=== PATIENT | female | born 1955 | race Caucasian/White ===

== ENCOUNTER 2019-02-13 14:50 | Emergency (ER) | payer OTHER ==
[2019-02-13 14:57] VITALS: BMI 30.9
[2019-02-13] MEDS ORDERED: SODIUM CHLORIDE 0.9% 1000 ML INFUS.BAG IV ONE (15:11)
[2019-02-13] MEDS ORDERED: TRANEXAMIC ACID 1000 MG/10 ML VIAL IVPUSH ONE (15:19)
[2019-02-13] MEDS ORDERED: TRANEXAMIC ACID 1000 MG/10 ML VIAL ONE (15:23)
[2019-02-13 15:29] LABS: MCH 31.5 pg (25.7-33.7); MCHC 33.2 g/dl (32.0-36.0)
[2019-02-13] MEDS ORDERED: ONDANSETRON 4 MG/2 ML VIAL IVPUSH ONE (15:30)
[2019-02-13] MEDS ORDERED: ONDANSETRON 4 MG/2 ML VIAL ONE (15:39)
[2019-02-13 15:44] LABS: ALBUMIN 3.5 g/dl (3.4-5.0); BILIRUBIN,TOTAL 0.5 mg/dL (0.2-1); BLOOD UREA NITROGEN 17.1 mg/dL (7-18); CALCIUM 9.2 mg/dL (8.5-10.1); CREATININE 1.3 mg/dL (0.55-1.3); TOT PROT 7.9 g/dl (6.4-8.2)
[2019-02-13 15:48] LABS: BASO % 0.5 % (0-2.0); EOS % 0.3 % (0-4.5); HEMATOCRIT 45.7 % (32.4-45.2); HEMOGLOBIN 15.2 GM/dL (10.7-15.3); LYMPH % 29.1 % (8-40); MEAN PLT VOLUME 7.2 fl (7.5-11.1); MONO % 5.2 % (3.8-10.2); NEUT % 64.9 % (42.8-82.8); RBC 4.81 M/mm3 (3.60-5.2); RDW 14.5 % (11.6-15.6); WHITE BLOOD COUNT 13.5 K/mm3 (4.0-10.0)
[2019-02-13 15:55] LABS: PLATELET COUNT 457 K/MM3 (134-434)
--- NOTE | 2019-02-13 16:03 | PDOC ---
History of Present Illness - General Chief Complaint: Vaginal Bleeding Stated Complaint: VAGINAL BLEEDING Time Seen by Provider: 02/13/19 15:02 History Source: Patient Exam Limitations: No Limitations - History of Present Illness Initial Comments: 02/13/19 15:57 63M with a PMH of HTN, DM, HLD, PAD (on asa and plavix), and HIV (undetectable VL and stable CD4) who presents to the ER with complaints of vaginal bleeding. Pt states that she had a cold knife bx of her cervix on 01/29/19 at [facility]. 1 hour [employer], she had profuse bleeding and states she bled through a pad while she was changing to come to the ER. She admits to lightheadedness and nausea but denies CP, SOB, fever, chills, abdominal pain. Past History - Past Medical History Allergies/Adverse Reactions: Allergies Allergy/AdvReac Type Severity Reaction Status Date / Time No Known Allergies Allergy Verified 02/13/19 14:57 Home Medications: Ambulatory Orders Omeprazole [Prilosec] 20 tab PO HS #30 capsule. 03/14/16 Blood Sugar Diagnostic [Glucose Test Strip] 1 each MC BID #1 box 12/06/16 Gabapentin [Neurontin -] 1 - 2 cap PO HS #60 capsule 07/14/18 Ergocalciferol [Vitamin D2] 50,000 unit PO MOFR #8 capsule 10/02/18 Alendronate Sodium [Binosto] 70 mg PO WEEKLY #4 tablet.eff 01/13/19 Atorvastatin Ca [Lipitor] 1 tab PO DAILY #30 tablet 01/13/19 Bictegrav/Emtricit/Tenofov Ala [Biktarvy 50-200-25 mg Tablet] 1 each PO DAILY # 30 tablet 01/13/19 Clopidogrel Bisulfate [Plavix -] 1 tab PO DAILY #30 tablet 01/13/19 Insulin Degludec [Tresiba Flextouch U-100] 58 unit SQ HS #1 box 01/13/19 Metoprolol Succinate [Toprol XL -] 25 mg PO BID #60 tab.sr.24h 01/13/19 Wakefield-3 Fatty Acids [Wakefield-3] 1,000 mg PO BID #60 capsule 01/13/19 Pen Needle, Diabetic [Insulin Pen Needle] 1 each HS #1 box 01/13/19 Ramipril [Altace] 10 mg PO ONCE #30 capsule 01/13/19 Semaglutide [Ozempic] 1 mg SQ Q7D #1 pen.injctr 01/13/19 Bupropion HCl [Wellbutrin Xl -] 1 tab PO DAILY #30 tab.sr.24h 01/20/19 Zolpidem Tartrate [Ambien] 5 mg PO HS #15 tablet MDD 1 01/20/19 Baclofen [Lioresal -] 10 mg PO TID PRN #90 tablet 01/27/19 Diclofenac Sodium [Voltaren] 2 gm TP TID PRN #3 tube 01/27/19 Oxycodone HCl/Acetaminophen [Endocet 7.5-325 mg Tablet] 1 each PO TID PRN #90 tablet MDD 3 01/27/19 Aspirin [Aspirin EC] 81 tab PO DAILY #30 tablet. 02/01/19 Empagliflozin [Jardiance] 10 mg PO DAILY #90 tablet 02/01/19 Anemia: No Asthma: No Cancer: No Cardiac Disorders: Yes (hx mi, cabg) CVA: No COPD: Yes CHF: No Dementia: No Diabetes: Yes GI Disorders: Yes (GERD) Disorders: No HTN: Yes Hypercholesterolemia: Yes Liver Disease: No Psychiatric Problems: No Seizures: No Thyroid Disease: No - Surgical History Abdominal Surgery: No Appendectomy: No Cardiac Surgery: Yes (6 stents via cardiac cath, 1 single bypass, open heart surgery) Cholecystectomy: Yes (06/2014) Lung Surgery: No Neurologic Surgery: No Orthopedic Surgery: Yes (Rt ankle s/p trauma - 07/30/14, [facility]) - Reproductive History Is Patient Now?: No - Suicide/Smoking/Psychosocial Hx Smoking History: Unknown if ever smoked Have you smoked in the past 12 months: Yes Number of Cigarettes Smoked Daily: 4 If you are a former smoker, when did you quit?: 1.5 months ago Cigars Per Day: 0 'Breaking Loose' booklet given: 11/07/14 Hx Alcohol Use: Yes (rare- none x months) Drug/Substance Use Hx: Yes (none for fifteen years) Substance Use Type: Alcohol, Cocaine, Marijuana Hx Substance Use Treatment: No Review of Systems - Review of Systems Able to Perform ROS?: Yes Comments:: 02/13/19 15:59 GENERAL/CONSTITUTIONAL: No fever or chills. No weakness. HEAD, EYES, EARS, NOSE AND THROAT: No change in vision. No ear pain or discharge. No sore throat. CARDIOVASCULAR: No chest pain, palpitations, or lightheadedness. RESPIRATORY: No cough, wheezing, shortness of breath, or hemoptysis. GASTROINTESTINAL: No abdominal pain, nausea, vomiting, diarrhea, or constipation. GENITOURINARY: + for vaginal bleeding. No dysuria, frequency, hematuria, or change in urination. MUSCULOSKELETAL: No joint or muscle swelling or pain. No neck or back pain. SKIN: No rash or lesions. NEUROLOGIC: No headache, numbness, tingling, focal weakness, loss of consciousness, or change in strength/sensation. *Physical Exam - Vital Signs Last Vital Signs Temp Pulse Resp BP Pulse Ox 97.8 F 86 18 127/80 97 02/13/19 15:35 02/13/19 15:35 02/13/19 15:35 02/13/19 15:35 02/13/19 15:35 - Physical Exam Comments: 02/13/19 15:59 GENERAL: Well developed, well nourished. Awake and alert. No acute distress. HEENT: Normocephalic, atraumatic. Hearing grossly normal. Moist mucous membranes. PERRLA, EOMI. No conjunctival pallor. Sclera are non-icteric. NECK: Supple. Full ROM. No JVD. CARDIOVASCULAR: Regular rate and rhythm. No murmurs, rubs, or gallops. PULMONARY: No evidence of respiratory distress. Lungs clear to auscultation bilaterally. No wheezing, rales or rhonchi. ABDOMINAL: Soft. Non-tender. Non-distended. No rebound or guarding. PELVIC: Normal external genitalia. Steady bright red blood noted at introitus. Dark red cervix with blood and clots noted. MUSCULOSKELETAL: Normal range of motion at all joints. No bony deformities or tenderness. EXTREMITIES: No cyanosis. No clubbing. No edema. No calf tenderness or swelling. SKIN: Warm and dry. Normal capillary refill. No rashes. No jaundice. NEUROLOGICAL: Alert, awake, appropriate. Cranial nerves 2-12 grossly intact. Normal speech. PSYCHIATRIC: Cooperative. Good eye contact. Appropriate mood and affect. ED Treatment Course - LABORATORY CBC & Chemistry Diagram: 02/13/19 15:20 02/13/19 15:20 - ADDITIONAL ORDERS Additional order review: Laboratory Results 02/13/19 02/13/19 15:20 15:20 Sodium 139 Potassium 4.0 Chloride 110 H Carbon Dioxide 21 Anion Gap 9 BUN 17.1 Creatinine 1.3 Est GFR (CKD-EPI)AfAm 51.28 Est GFR (CKD-EPI)NonAf 44.24 Random Glucose 197 H Calcium 9.2 Total Bilirubin 0.5 AST 19 ALT 26 Alkaline Phosphatase 113 Total Protein 7.9 Albumin 3.5 Crossmatch See Detail 02/13/19 15:20 RBC 4.81 MCV 95.0 MCHC 33.2 RDW 14.5 MPV 7.2 L Neutrophils % 64.9 Lymphocytes % 29.1 D Monocytes % 5.2 Eosinophils % 0.3 Basophils % 0.5 - Medications Given in the ED: ED Medications Discontinued Medications Generic Name Dose Route Start Last Admin Trade Name Freq PRN Reason Stop Dose Admin Ondansetron HCl 4 mg 02/13/19 15:30 02/13/19 15:50 Zofran Injection IVPUSH 02/13/19 15:31 4 mg ONCE ONE Administration Sodium Chloride 1,000 ml 02/13/19 15:11 02/13/19 15:38 Normal Saline - IV 02/13/19 15:12 1,000 ml ONCE ONE Administration Tranexamic Acid 1,000 mg 02/13/19 15:19 02/13/19 15:38 Tranexamic Acid - IVPUSH 02/13/19 15:20 1,000 mg ONCE ONE Administration Medical Decision Making - Medical Decision Making 02/13/19 16:00 63F with MMP who presents with profuse vaginal bleeding on asa and plavix. Bright red blood noted at introitus. Stat emergency release for 1 unit PRBC called. TXA ordered. [facility] OBGYN called and advises to pack w/ krylex and place andres. Blood consent obtained and consent for transfer obtained. Hgb 15. Tachycardia slowly resolving. Pt slightly pale appearing but receiving blood and NS. Pt stable for transfer. *DC/Admit/Observation/Transfer Diagnosis at time of Disposition: Post-op bleeding - Discharge Dispostion Disposition: TRANSFER ACUTE CARE/OTHER HOSP Condition at time of disposition: Guarded - Referrals Referrals: Savanna Snowden DRIER ATTENDANT [Primary Care Provider] - - Patient Instructions - Post Discharge Activity
[2019-02-13 16:08] LABS: INR 1.03 (0.83-1.09); PROTHROMBIN TIME (PATIENT) 12.1 SEC (9.7-13.0)
--- NOTE | 2019-02-13 16:13 | PDOC ---
Documentation entered by Kishore Avitia SCRIBE, acting as scribe for Ayaka Fair DO. Ayaka Fair DO: This documentation has been prepared by the Sadi pyle Elijah, SCRIBE, under my direction and personally reviewed by me in its entirety. I confirm that the documentation accurately reflects all work, treatment, procedures, and medical decision making performed by me. Attending Attestation - Resident Resident Name: MorenoosbaldoCameron christohper - ED Attending Attestation I have performed the following: I have examined & evaluated the patient, The case was reviewed & discussed with the resident, I agree w/resident's findings & plan - HPI HPI: 02/13/19 16:26 The patient is a 63 year old female with a significant past medical history of cervical dysplasia, HIV, HTN, HLD, Chronic UTIs, osteoporosis and peripheral artery disease who presents to the ED with heavy vaginal bleeding starting about an hour ago. The patient soaked through the pads that she tried to use to slow down the bleeding which prompted her visit to the ED. Allergies: NKA - Physicial Exam PE: 02/13/19 16:26 GENERAL: +Diaphoretic. Awake, alert, and fully oriented HEAD: No signs of trauma EYES: PERRLA, EOMI, sclera anicteric, conjunctiva clear ENT: Auricles normal inspection, hearing grossly normal, nares patent, oropharynx clear without exudates. Moist mucosa NECK: Normal ROM, supple, no lymphadenopathy, JVD, or masses LUNGS: Breath sounds equal, clear to auscultation bilaterally. No wheezes, and no crackles HEART: +Tachycardic Normal S1 and S2, no murmurs, rubs or gallops ABDOMEN: Soft, nontender, normoactive bowel sounds. No guarding, no rebound. No masses EXTREMITIES: Normal range of motion, no edema. No clubbing or cyanosis. No cords, erythema, or tenderness VAGINAL: +Active Bright Red bleeding through the Vaginal Canal NEUROLOGICAL: Cranial nerves II through XII grossly intact. Normal speech, normal gait SKIN: +Pale. Warm, Dry, normal turgor, no rashes or lesions noted. - Critical Care Time Total Critical Care Time: 35 Critical Care Statement: The care of this patient involved high complexity decision making to prevent further life threatening deterioration of the patient 's condition and/or to evaluate & treat vital organ system(s) failure or risk of failure. - Medical Decision Making 02/13/19 15:20 I, Dr. Ayaka Fair, DO, attest that this document has been prepared under my direction and personally reviewed by me in its entirety. I further attest, that it accurately reflects all work, treatment, procedures and medical decision -making performed by me. 02/13/19 15:20 a/p: 63yo female s/p cone bx of the cervix with active vaginal bleeding -pt on asa and plavix -pt restarted her asa and plavix the day after sx on 01/29 -pt states black discharge x 2 days now with active brb from the vagina -on exam passing large clots and active bleeding from the vagina - soaking through pads and chucks on the bed -will send labs, type and screen, will discuss with LOCK TECHNICIAN from [facility] 02/13/19 15:[address] Thomas from L[facility] TE[facility]NICIAN at [facility] who accepts the patient in transfer back to [facility] for post op bleeding pt signed blood consent, transfer consent signed pt was accepted in transfer back to [facility] where her surgery was performed. 02/13/19 16:37 h/h stable plts stable however on asa and plavix pt has left for [facility], hemodynamically stable Per dr. thomas, andres placed, vaginal canal packed with kerlex after being evacuated of clot pt tolerated those procedures well *DC/Admit/Observation/Transfer Diagnosis at time of Disposition: Post-op bleeding - Discharge Dispostion Disposition: TRANSFER ACUTE CARE/OTHER HOSP Condition at time of disposition: Guarded - Referrals Referrals: Savanna Snowden, ACCOUNTING OFFICER [Primary Care Provider] - - Patient Instructions - Post Discharge Activity - Transfer to Acute Care Facility Receiving Facility: [facility]. Accepting Physician:: Dr. Thomas Heart Score/ECG Review - ECG Intrepretation Comment:: 02/13/19 16:12 sinus at 89, pvc, nl axis, no acute st/t wave findigns
[2019-02-13 16:40] VITALS: PULSE 91; TEMP 97.8
[2019-02-13 17:05] LABS: EPI CELLS 4.8 /HPF (0-5/HPF); HYALINE CASTS 26 /lpf (0-8); URINE APPEARANCE CLEAR; URINE BACTERIA 1839.2 /hpf (NEGATIVE); URINE BILIRUBIN NEGATIVE (NEGATIVE); URINE COLOR YELLOW; URINE GLUCOSE (UA) 3+ (NEGATIVE); URINE KETONE NEGATIVE (NEGATIVE); URINE LEUK ESTERASE NEGATIVE (NEGATIVE); URINE NITRITE POSITIVE (NEGATIVE); URINE PROTEIN NEGATIVE (NEGATIVE); URINE RBC 2 /hpf (0-4); URINE UROBILINOGEN 0.2 mg/dL (0.2-1.0); URINE WBC 14 /hpf (0-5)
[2019-02-13 17:18] VITALS: BP 127/78
--- NOTE | 2019-02-15 00:24 | EKG ---
Test Reason : Blood Pressure : / mmHG Vent. Rate : 089 BPM Atrial Rate : 089 BPM P-R Int : 174 ms QRS Dur : 086 ms QT Int : 384 ms P-R-T Axes : 051 070 075 degrees QTc Int : 467 ms SINUS RHYTHM WITH FREQUENT PREMATURE VENTRICULAR COMPLEXES POSSIBLE LEFT ATRIAL ENLARGEMENT NONSPECIFIC T WAVE ABNORMALITY ABNORMAL ECG WHEN COMPARED WITH ECG OF 06-JUN-2006 15:04, PREMATURE VENTRICULAR COMPLEXES ARE NOW PRESENT Confirmed by MD Ovidio, Edu ([id number]) on 02/15/2019 12:24:01 AM Referred By: Confirmed By:Edu Nolan MD
== END 2019-02-13 17:18 | disposition short-term general hospital (02) ==
LOC: JER 14:50
PROC: 3E033GC Introduction of Other Therapeutic Substance into Peripheral Vein, Percutaneous Approach (ICD-10-PCS; principal; 2019-02-13)
PROC: 3E033GC Introduction of Other Therapeutic Substance into Peripheral Vein, Percutaneous Approach (ICD-10-PCS; 2019-02-13)
PROC: 0T9B70Z Drainage of Bladder with Drainage Device, Via Natural or Artificial Opening (ICD-10-PCS; 2019-02-13)
PROC: 2Y44X5Z Packing of Female Genital Tract using Packing Material (ICD-10-PCS; 2019-02-13)
PROC: 30233N1 Transfusion of Nonautologous Red Blood Cells into Peripheral Vein, Percutaneous Approach (ICD-10-PCS; 2019-02-13)
DX: N99.821 Postprocedural hemorrhage of a genitourinary system organ or structure following other procedure (principal); N87.9 Dysplasia of cervix uteri, unspecified; I25.10 Atherosclerotic heart disease of native coronary artery without angina pectoris; I10 Essential (primary) hypertension; Z95.1 Presence of aortocoronary bypass graft; Z95.5 Presence of coronary angioplasty implant and graft; I25.2 Old myocardial infarction; E11.9 Type 2 diabetes mellitus without complications; Z79.4 Long term (current) use of insulin; J44.9 Chronic obstructive pulmonary disease, unspecified; K21.9 Gastro-esophageal reflux disease without esophagitis; E78.00 Pure hypercholesterolemia, unspecified; Z21 Asymptomatic human immunodeficiency virus [HIV] infection status; I73.89 Other specified peripheral vascular diseases; Z79.01 Long term (current) use of anticoagulants
CPT/HCPCS: 36415; 36430; 36511; 51702; 57180; 80053; 81003; 85025; 85610; 86850; 86900; 86901; 86922; 87086; 87186; 93005; 93010; 96374; 96375; 99285-25; J7030; P9038; P9058

== ENCOUNTER → 2019-04-23 | Outpatient (CLI) | payer OTHER | LOC: YHH 10:52 ==

== ENCOUNTER 2020-04-04 09:00 | Day surgery (SDC) | payer OTHER ==
[2020-04-03 10:54] VITALS: BMI 30.6
[2020-04-04 09:35] VITALS: TEMP 97.1
[2020-04-04 10:59] VITALS: BP 116/68; PULSE 64
--- NOTE | 2020-04-05 14:26 | PATH ---
Surgical Pathology Report Patient Name: CECILIA MEZA [facility]. Rec. #: [id number] /Age/Gender: 1955 (Age: 64) / F Account: [id number] Location: ASU-ENDOSCOPY Taken: 04/04/2020 Received: 04/04/2020 Reported: 04/05/2020 Physicians: Rodolfo Campbell D.O. Specimen(s) Received HEPATIC FLEXURE Clinical History Screening Postoperative diagnosis: Colon polyp Final Diagnosis COLON, HEPATIC FLEXURE, POLYP, BIOPSY: TUBULAR ADENOMA. Electronically Signed Gena Grewal M.D. Gross Description Received in formalin, labeled "hepatic flexure polyp" are 2 mancini, irregular portions of soft tissue measuring 0.2 and 0.7 cm. in greatest dimension. The specimens are submitted in toto in one cassette. /04/04/2020 saudi/04/04/2020
== END 2020-04-04 10:30 | disposition home or self-care (01) ==
LOC: JASU-ENDO 09:00
PROVIDERS: ATTEND Internal Medicine Gastroenterology
PROC: 0DBL8ZX Excision of Transverse Colon, Via Natural or Artificial Opening Endoscopic, Diagnostic (ICD-10-PCS; principal; 2020-04-04 09:00)
DX: Z12.11 Encounter for screening for malignant neoplasm of colon (principal); D12.3 Benign neoplasm of transverse colon; K64.8 Other hemorrhoids; E11.9 Type 2 diabetes mellitus without complications; Z79.4 Long term (current) use of insulin; Z21 Asymptomatic human immunodeficiency virus [HIV] infection status; I73.9 Peripheral vascular disease, unspecified; G47.33 Obstructive sleep apnea (adult) (pediatric)
CPT/HCPCS: 88305-TC

== ENCOUNTER 2021-02-11 22:44 | Emergency (ER) | payer OTHER ==
[2021-02-11 22:59] VITALS: BP 140/69; PULSE 95; TEMP 98.4; BMI 27.4
[2021-02-12] MEDS ORDERED: LIDOCAINE 5% TOPICAL PATCH TP ONE (00:05)
[2021-02-12] MEDS ORDERED: ACETAMINOPHEN 1000 MG/100 ML VIAL (NON FORMULARY) IVPB ONE (00:05)
[2021-02-12] MEDS ORDERED: ACETAMINOPHEN INJECTION 100 ML IVPB ONE (00:09)
[2021-02-12] MEDS ORDERED: LIDOCAINE 5% TOPICAL PATCH ONE (00:22)
[2021-02-12 00:38] LABS: BASO % 1.2 % (0-2.0); EOS % 0.6 % (0-4.5); HEMATOCRIT 45.3 % (32.4-45.2); HEMOGLOBIN 15.2 GM/dL (10.7-15.3); LYMPH % 25.5 % (8-40); MCH 32.8 pg (25.7-33.7); MCHC 33.4 g/dl (32.0-36.0); MEAN PLT VOLUME 7.6 fl (7.5-11.1); NEUT % 64.7 % (42.8-82.8); PLATELET COUNT 268 10^3/uL (134-434); RBC 4.63 M/mm3 (3.60-5.2); RDW 13.4 % (11.6-15.6); WHITE BLOOD COUNT 14.7 K/mm3 (4.0-10.0)
[2021-02-12 00:57] LABS: CALCIUM 9.2 mg/dL (8.5-10.1)
[2021-02-12 00:58] LABS: ALBUMIN 3.8 g/dl (3.4-5.0); BLOOD UREA NITROGEN 21.4 mg/dL (7-18)
[2021-02-12 01:01] LABS: CREATININE 0.9 mg/dL (0.55-1.3)
[2021-02-12 01:03] LABS: BILIRUBIN,TOTAL 0.8 mg/dL (0.2-1); TOT PROT 7.7 g/dl (6.4-8.2)
[2021-02-12] MEDS ORDERED: KETOROLAC TROMETHAMINE 15 MG/ML VIAL IVPUSH ONE (03:07)
[2021-02-12] MEDS ORDERED: KETOROLAC TROMETHAMINE 15 MG/ML VIAL ONE (03:18)
[2021-02-12] MEDS ORDERED: LIDOCAINE PATCH REMOVAL MC SCH (22:00)
== END 2021-02-12 03:39 | disposition home or self-care (01) ==
LOC: JER 22:44
PROC: 3E0333Z Introduction of Anti-inflammatory into Peripheral Vein, Percutaneous Approach (ICD-10-PCS; principal; 2021-02-11)
PROC: 3E0333Z Introduction of Anti-inflammatory into Peripheral Vein, Percutaneous Approach (ICD-10-PCS; 2021-02-11)
DX: S20.211A Contusion of right front wall of thorax, initial encounter (principal); S30.1XXA Contusion of abdominal wall, initial encounter
CPT/HCPCS: 36415; 71250-TC; 74177-TC; 80053; 85025; 96374; 96375; 99285-25; J0131

== ENCOUNTER 2023-01-03 15:07 | Emergency (ER) | payer OTHER ==
[2023-01-03 15:20] VITALS: BP 115/53; PULSE 83; RESP 16; TEMP 98.1; BMI 25.3
== END 2023-01-03 17:28 | disposition home or self-care (01) ==
LOC: JERFT 15:07
DX: M79.641 Pain in right hand (principal); M25.531 Pain in right wrist; V47.0XXA Car driver injured in collision with fixed or stationary object in nontraffic accident, initial encounter; Y92.481 Parking lot as the place of occurrence of the external cause
CPT/HCPCS: 73110-TC-RT-FY; 73130-TC-RT-FY; 99283-25

== ENCOUNTER 2023-10-09 04:15 | Day surgery (SDC) | payer OTHER ==
[2023-10-07 10:53] VITALS: BMI 25.7
[2023-10-09] MEDS ORDERED: LIDOCAINE HCL 1%, 10 MG/ML (20ML VIAL) ONE (07:48)
[2023-10-09] MEDS ORDERED: HEPARIN NA (PORCINE) 5,000 UNITS/ML 1ML VIAL ONE (07:48)
[2023-10-09] MEDS ORDERED: MIDAZOLAM HCL 2 MG/2 ML SINGLE DOSE VIAL ONE (08:14)
[2023-10-09] MEDS ORDERED: PROPOFOL 20 ML ONE (08:14)
[2023-10-09] MEDS: ceFAZolin SODIUM 1 GM VIAL IVPB ONE (08:26)
[2023-10-09] MEDS: LIDOCAINE HCL 1%, 10 MG/ML (20ML VIAL) INF ONE (08:36)
[2023-10-09] MEDS ORDERED: ONDANSETRON 4 MG/2 ML VIAL IVPUSH PRN (09:11)
[2023-10-09] MEDS ORDERED: LACTATED RINGERS SOLUTION 1,000 ML IV SCH (09:15)
[2023-10-09] MEDS ORDERED: CLOPIDOGREL BISULFATE 75 MG TABLET (FP) ONE (09:45)
[2023-10-09] MEDS: CLOPIDOGREL BISULFATE 75 MG TABLET (FP) PO ONE (10:02)
[2023-10-09 11:05] VITALS: RESP 18
[2023-10-09 11:56] VITALS: BP 132/63; PULSE 54; TEMP 97.5
== END 2023-10-09 12:10 | disposition home or self-care (01) ==
LOC: JASU-SURG 04:15
PROVIDERS: ATTEND Surgery Vascular Surgery
PROC: 04CN3ZZ Extirpation of Matter from Left Popliteal Artery, Percutaneous Approach (ICD-10-PCS; 2023-10-09)
PROC: 047N3Z1 Dilation of Left Popliteal Artery using Drug-Coated Balloon, Percutaneous Approach (ICD-10-PCS; principal; 2023-10-09 08:00)
DX: I70.212 Atherosclerosis of native arteries of extremities with intermittent claudication, left leg (principal)
CPT/HCPCS: 37225; C2623; 76000-TC-FY; 82962; 94760; C1760; C1897; J1644

== ENCOUNTER 2023-11-24 11:32 | Emergency (ER) | payer OTHER ==
[2023-11-24 11:42] VITALS: BP 117/63; PULSE 78; RESP 20; TEMP 98.4; BMI 24.7
[2023-11-24] MEDS ORDERED: ALBUTEROL SO4 2.5/IPRATROPIUM 0.5 INH SOL 3 ML VIAL.NEB. NEB ONE (13:20)
[2023-11-24 13:23] LABS: BASO % 0.2 % (0-2.0); EOS % 0.6 % (0-4.5); HEMOGLOBIN 13.4 GM/dL (10.7-15.3); LYMPH % 22.9 % (8-40); MCH 31.2 pg (25.7-33.7); MCHC 34.2 g/dl (32.0-36.0); MEAN CELL VOLUME 91.2 fl (80-96); MEAN PLT VOLUME 6.9 fl (7.5-11.1); MONO % 10.1 % (3.8-10.2); NEUT % 66.2 % (42.8-82.8); PLATELET COUNT 360 10^3/uL (134-434); RBC 4.28 M/mm3 (3.60-5.2); RDW 13.2 % (11.6-15.6); WHITE BLOOD COUNT 12.8 K/mm3 (4.0-10.0)
[2023-11-24] MEDS: ALBUTEROL SO4 2.5/IPRATROPIUM 0.5 INH SOL 3 ML VIAL.NEB. NEB ONE (13:25)
[2023-11-24 13:50] LABS: POTASSIUM 4.7 mmol/L (3.5-5.1)
[2023-11-24 13:52] LABS: CALCIUM 9.3 mg/dL (8.5-10.1)
[2023-11-24 13:53] LABS: ALBUMIN 2.6 g/dl (3.4-5.0)
[2023-11-24 13:56] LABS: CREATININE 0.8 mg/dL (0.55-1.3)
[2023-11-24 13:57] LABS: BILIRUBIN,TOTAL 0.7 mg/dL (0.2-1); TOT PROT 6.8 g/dl (6.4-8.2)
== END 2023-11-24 16:31 | disposition home or self-care (01) ==
LOC: JERFT 11:32
PROC: 3E0F7GC Introduction of Other Therapeutic Substance into Respiratory Tract, Via Natural or Artificial Opening (ICD-10-PCS; principal; 2023-11-24)
DX: R06.02 Shortness of breath (principal); R05.9 Cough, unspecified; M54.9 Dorsalgia, unspecified; R07.9 Chest pain, unspecified
CPT/HCPCS: 36415; 71046-TC-FY; 80053; 82550; 83880; 84484; 85025; 93005; 93010; 99285-25; G0463-25